=== PATIENT | male | born 1955 ===

== ENCOUNTER → 2021-04-13 | Outpatient (CLI) | payer OTHER ==
[~2021-04-13] MED LIST: ALLO100; ALLO300 PO; AMLO5 PO; Alavert D-12 A1 EACH PO; Apple Cider Vi300 MG; COMBIVENT RESPIM4 GM INH; EXCEDRIN MIGRAINE; Excedrin Extra1 EACH; FLOVENT HFA12 GM INH; FLUT110OIA INH; MULTIPLE VITAM1 EACH PO; NIAC500 PO; Norvasc5 MG PO; OMEPRAZOLE MAGN20 MG PO; Ventolin/Prove6.7 GM INH; ZYRTEC10 M2 PO
== END | disposition home or self-care (01) ==
LOC: LAB SHORT 11:08 → LAB 11:08
DX: L57.0 Actinic keratosis (principal)
CPT/HCPCS: 88305

== ENCOUNTER → 2021-12-22 | Outpatient (CLI) | payer OTHER ==
[2021-12-23 10:43] LABS: Stool Occult Bld Immuno 1 Positive (NEGATIVE)
== END ==
LOC: LAB SHORT 16:46
PROVIDERS: Internal Medicine
DX: Z12.11 Encounter for screening for malignant neoplasm of colon (principal)
CPT/HCPCS: 82274

== ENCOUNTER → 2022-04-19 | Outpatient (CLI) | payer OTHER ==
[~2022-04-19] MED LIST changes: +ROSU10TA
[2022-04-20 09:53] LABS: Stool Occult Bld Immuno 1 Negative (NEGATIVE); Stool Occult Bld Immuno 2 Negative (NEGATIVE)
== END | disposition home or self-care (01) ==
LOC: LAB SHORT 16:38 → LAB 16:38
PROVIDERS: Internal Medicine Gastroenterology
DX: Z09 Encounter for follow-up examination after completed treatment for conditions other than malignant neoplasm (principal); Z80.0 Family history of malignant neoplasm of digestive organs; Z86.010 Personal history of colon polyps
CPT/HCPCS: 82274

== ENCOUNTER → 2023-11-11 | Outpatient (CLI) | payer OTHER | END | disposition home or self-care (01) | LOC: LAB SHORT 12:27 → LAB 12:27 | DX: C44.41 Basal cell carcinoma of skin of scalp and neck (principal); L82.1 Other seborrheic keratosis | CPT/HCPCS: 88305 ==

== ENCOUNTER → 2023-11-26 | Outpatient (CLI) | payer OTHER | END | disposition home or self-care (01) | LOC: LAB 14:44 → LAB SHORT 14:44 | DX: C44.41 Basal cell carcinoma of skin of scalp and neck (principal) | CPT/HCPCS: 88305 ==

== ENCOUNTER 2025-09-20 08:52 | Day surgery (SDC) | payer OTHER ==
[~2025-09-20] VITALS: Ht 177.8 cm; Wt 79.6 kg
[2025-09-20] MEDS ORDERED: LISI5 (09:12)
[2025-09-20 11:18] VITALS: BP 109/68
--- NOTE | 2025-09-20 11:23 | NUR ---
09/20/25 1123 MADDY SOLANO PT NOTED TO HAVE CONGESTIVE COUGH WHILE IN PROCEDURE. PT DENIED RECENT COUGH, COLD PRIOR TO ENTERING OR. ALSO NOTED, PT HAD ONE - TWO PVC'S NOTED DURING PROCEDURE. THIS PROGRESSED TO CONSISTENT REGULAR/IRREGULAR PVC'S. BY THE TIME PROCEDURE ENDED IT WAS NOTED PT'S HEART RATE INDICATED VARIABILITY. PT PLACED BACK ON 3 LEAD PRIOR TO LEAVING THE OR - VENTRIVULAR BIGEMINY/TRIGEMINY NOTED. PT TRANSFERRED TO RECOVERY IN STABLE CONDITION AND CONSULTED. SEE STEP DOWN FOR THIS NOTE.
--- NOTE | 2025-09-20 11:30 | NUR ---
09/20/25 1130 MADDY SOLANO PT BROUGHT TO RECOVERY FROM PROCEDURE ROOM. DR. MARTINEZ IN TO SEE PATIENT, WHO IS BACK ON THREE LEAD INDICATING BIGEMINY/TRIGEMINY WITH EVERY OTHER BEAT PVC. PT THEN RETURNED TO NORMAL SINUS RHYTHM WITH INTERMITTENT PVC'S. DR. MARTINEZ INTERVIEWED PATIENT - WHO REPORTS TWO CUPS OF COFFEE IN THE AM, OTHERWISE LITTLE CAFFEINE INTAKE. PT WALKS, IS VERY ACTIVE, LOW BMI. NO PREVIOUS HEART HISTORY. PT DENIES SYMPTOMS AT THIS TIME AND WAS EDUCATED THAT IF HE WERE TO BECOME SYMPTOMATIC HE SHOULD PRESENT TO PRIMARY CARE, AND REQUEST CARDIOLOGY REFERRAL. IF SYNCOPE OCCURS, PT SHOULD GO TO URGENT CARE/ER. PT VERBALIZED HIS UNDERSTANDING. THIS RN ALSO DISCUSSED WITH PATIENT, THE PRODUCTIVE COUGH. PT VERBALIZED THIS HAS BEEN A LONGSTANDING PROBLEM WHICH HE ATRIBUTES TO ASTHMA. HE IS ON SEVERAL INHALERS. I SUGGESTED PATIENT CONSIDER A PULMONOLOGY REFERRAL TO IMPROVE HIS QUALITY OF LIFE. HE IS A GARCIA AND REPORTS IT AFFECTS HIS DAILY LIFE. HE HAS NOT SEEN PULMONOLOGY PRIOR. PT VERBALIZED UNDERSTANDING AND THIS WAS ALL WRITTEN ON HIS DC INSTRUCTIONS WELL.
== END 2025-09-20 11:18 | disposition home or self-care (01) ==
LOC: ORSCSDS 08:52
PROVIDERS: Family Medicine
PROC: 0DBL8ZX Excision of Transverse Colon, Via Natural or Artificial Opening Endoscopic, Diagnostic (ICD-10-PCS; principal; 2025-09-20 10:00)
PROC: 0DBN8ZX Excision of Sigmoid Colon, Via Natural or Artificial Opening Endoscopic, Diagnostic (ICD-10-PCS; principal; 2025-09-20 10:00)
DX: Z12.11 Encounter for screening for malignant neoplasm of colon (principal); Z86.0101 Personal history of adenomatous and serrated colon polyps; Z80.0 Family history of malignant neoplasm of digestive organs; K63.5 Polyp of colon; K64.0 First degree hemorrhoids; I10 Essential (primary) hypertension; E78.5 Hyperlipidemia, unspecified; Z79.899 Other long term (current) drug therapy; J44.89 Other specified chronic obstructive pulmonary disease; J45.990 Exercise induced bronchospasm; Z83.719 Family history of colon polyps, unspecified; Z85.828 Personal history of other malignant neoplasm of skin
CPT/HCPCS: 88305; J2704; J7120